=== PATIENT | female | born 1985 | race Caucasian/White ===

== ENCOUNTER 2021-02-23 09:03 | Observation (INO) | payer OTHER ==
[2021-02-23 09:29] VITALS: BP 127/85
[2021-02-23] MEDS ORDERED: [UNRECOGNIZED DRUG - OTHER] PO (10:11)
[2021-02-23 10:47] LABS: BASOPHILS % (AUTO) 0.5 % (0.0-2.0); EOSINOPHILS % (AUTO) 0.5 % (1.0-6.0); HEMATOCRIT 35.3 % (36-46); LYMPHOCYTES # (AUTO) 1.1 K/uL (1.0-4.8); LYMPHOCYTES % (AUTO) 16.9 % (22.0-44.0); MEAN CORPUSCULAR HEMOGLOBIN 31.4 pg (26.0-34.0); MEAN CORPUSCULAR HGB CONC 33.8 G/dL (31.0-37.0); MEAN CORPUSCULAR VOLUME 93 fL (80-100); MONOCYTES # (AUTO) 0.5 K/uL (0.1-1.0); MONOCYTES % (AUTO) 7.5 % (2.0-9.0); NEUTROPHILS # (AUTO) 4.8 K/uL (1.8-7.7); NEUTROPHILS % (AUTO) 74.6 % (40.0-70.0); PLATELET COUNT (AUTO) 171 K/uL (150-450); RED BLOOD CELL COUNT(AUTO) 3.81 MIL/uL (4.00-5.20); RED CELL DISTRIBUTION WIDTH 14.1 % (11.5-14.5)
[2021-02-23 11:03] LABS: ANION GAP 11 mmol/L (8-16); CALCIUM, TOTAL 8.9 mg/dL (8.8-10.5); CARBON DIOXIDE 24 mmol/L (22-29); CHLORIDE 106 mmol/L (98-107); CREATININE 0.76 mg/dL (0.60-1.30); GLOMERULAR FILTR. RATE CALC > 60 mL/min (>60); GLUCOSE,RANDOM 100 mg/dL (70-110); POTASSIUM 4.6 mmol/L (3.5-5.1); SODIUM SERUM 141 mmol/L (136-145); UREA NITROGEN, BLOOD 18 mg/dL (7-18)
[2021-02-23 11:12] LABS: ALANINE AMINOTRANSFERASE 37 U/L (12-78); ALBUMIN 2.7 g/dL (3.4-5.0); ALKALINE PHOSPHATASE 153 U/L (46-116); ASPARTATE AMINOTRANSFERASE 20 U/L (15-37); BILIRUBIN,TOTAL 0.2 mg/dL (0.1-1.0); TOTAL PROTEIN, SERUM 6.2 g/dL (6.4-8.2); URIC ACID 6.2 mg/dL (2.6-7.2)
== END 2021-02-23 11:10 | disposition home or self-care (01) ==
LOC: 4S 09:03
PROVIDERS: ADMIT Obstetrics & Gynecology; ATTEND Obstetrics & Gynecology
DX: O09.513 Supervision of elderly primigravida, third trimester (principal); Z3A.37 37 weeks gestation of pregnancy
CPT/HCPCS: 59025; 80053; 81001; 84550; 85025; 99219

== ENCOUNTER 2021-02-23 13:54 | Observation (INO) | payer OTHER ==
[~2021-02-23] VITALS: Ht 157.5 cm; Wt 66.7 kg
[~2021-02-23 13:54] MED LIST: [UNRECOGNIZED DRUG - OTHER] PO
[2021-02-28 07:35] VITALS: BP 127/85
[2021-02-28] MEDS ORDERED: PREN-217 PO (07:37)
[2021-02-28] MEDS ORDERED: DEXTROSE 5%-LACTATED RINGERS 1,000 ML IV ONE (13:30)
== END 2021-02-28 09:40 | disposition home or self-care (01) ==
LOC: 4S 02-28 06:41
PROVIDERS: ADMIT Obstetrics & Gynecology; ATTEND Obstetrics & Gynecology
DX: O62.9 Abnormality of forces of labor, unspecified (principal); O42.92 Full-term premature rupture of membranes, unspecified as to length of time between rupture and onset of labor; Z3A.38 38 weeks gestation of pregnancy
CPT/HCPCS: 59025; 76805; 81001; 89060; 99219

== ENCOUNTER 2021-03-01 02:20 | Observation (INO) | payer OTHER ==
[~2021-03-01] VITALS: Ht 154.9 cm; Wt 67.1 kg
[~2021-03-01 02:20] MED LIST changes: +PREN-217 PO
[2021-03-01 02:33] VITALS: BP 120/79
[2021-03-01] MEDS ORDERED: RINGERS SOLUTION,LACTATED 1,000 ML IV ONE (06:30)
[2021-03-01] MEDS ORDERED: HydrOXYzine HCL 50 MG TABLET PO ONE (06:30)
[2021-03-01] MEDS ORDERED: FentaNYL CITRATE PF 100 MCG/2 ML VIAL IVP PRN (08:45)
== END 2021-03-01 10:05 | disposition home or self-care (01) ==
LOC: 4S 02:20
PROVIDERS: ADMIT Student in an Organized Health Care Education/Training Program; ATTEND Student in an Organized Health Care Education/Training Program
DX: O62.9 Abnormality of forces of labor, unspecified (principal); Z3A.38 38 weeks gestation of pregnancy
CPT/HCPCS: 59025; 81001; 96361; 96374; 99219; J3010; 96360; 96366

== ENCOUNTER 2021-03-02 18:20 | Inpatient (IN) | payer OTHER ==
[2021-03-02] MEDS ORDERED: LIDOCAINE/PF 1% 30 ML VIAL SQ PRN (19:00)
[2021-03-02] MEDS ORDERED: CITRIC ACID/SODIUM CITRATE 30 ML SOLUTION UDCUP PO PRN (19:00)
[2021-03-02] MEDS ORDERED: RINGERS SOLUTION,LACTATED 1,000 ML IV PRN (19:00)
[2021-03-02] MEDS ORDERED: OXYTOCIN 30 UNITS/LACT RINGERS 500 ML IV ONE (19:00)
[2021-03-02] MEDS ORDERED: METOCLOPRAMIDE HCL 5 MG/ML 2 ML VIAL IVP PRN (19:00)
[2021-03-02] MEDS: RINGERS SOLUTION,LACTATED 1,000 ML IV SCH (19:37)
[2021-03-02 19:39] LABS: BASOPHILS % (AUTO) 0.3 % (0.0-2.0); EOSINOPHILS % (AUTO) 0 % (1.0-6.0); HEMATOCRIT 37.6 % (36-46); HEMOGLOBIN 12.7 g/dL (12.0-16.0); LYMPHOCYTES # (AUTO) 0.9 K/uL (1.0-4.8); MEAN CORPUSCULAR HEMOGLOBIN 31.1 pg (26.0-34.0); MEAN CORPUSCULAR HGB CONC 33.8 G/dL (31.0-37.0); MEAN CORPUSCULAR VOLUME 92 fL (80-100); MONOCYTES # (AUTO) 0.5 K/uL (0.1-1.0); MONOCYTES % (AUTO) 3.7 % (2.0-9.0); NEUTROPHILS # (AUTO) 11.2 K/uL (1.8-7.7); PLATELET COUNT (AUTO)-OB 186 K/uL (150-450); RED BLOOD CELL COUNT(AUTO) 4.08 MIL/uL (4.00-5.20); RED CELL DISTRIBUTION WIDTH 14.5 % (11.5-14.5)
[2021-03-02] MEDS ORDERED: OXYGEN THERAPY IH SCH (20:00)
[2021-03-02 20:03] VITALS: BP 138/85
[2021-03-02] MEDS ORDERED: ROPIVACAINE HCL/PF 0.2% 100 ML ED ONE (20:37)
[2021-03-02] MEDS ORDERED: ROPIVACAINE HCL/PF 0.2% 100 ML ED PRN (21:00)
[2021-03-02] MEDS ORDERED: DiphenhydrAMINE HCL 50 MG/ML VIAL IVP PRN (21:00)
[2021-03-02] MEDS ORDERED: NALBUPHINE HCL 10 MG/ML VIAL IVP PRN (21:00)
[2021-03-02] MEDS ORDERED: ONDANSETRON HCL 4 MG/2 ML VIAL IVP PRN (21:00)
[2021-03-02 22:14] LABS: COVID AG,FIA SOURCE NASOPHARYNGEAL
[2021-03-03] MEDS ORDERED: MINERAL OIL 30 ML UDCUP ONE (02:44)
[2021-03-03] MEDS ORDERED: MINERAL OIL 30 ML UDCUP VG ONE (02:45)
[2021-03-03] MEDS: RINGERS SOLUTION,LACTATED 1,000 ML IV SCH (03:34)
[2021-03-03] MEDS ORDERED: MEASLES/MUMPS/RUBELLA VACCINE, LIVE 0.5 ML VIAL SQ. ONE (05:00)
[2021-03-03] MEDS ORDERED: BENZOCAINE 20%/MENTHOL 56 GM SPRAY CANISTER TP PRN (05:00)
[2021-03-03] MEDS ORDERED: GLYCERIN/WITCH HAZEL LEAF 40 PADS JAR TP PRN (05:00)
[2021-03-03] MEDS: LANOLIN 7 GM OINTMENT TP PRN (05:41)
[2021-03-03] MEDS: IBUPROFEN 600 MG TABLET PO SCH ×3 (06:37→17:52)
[2021-03-03] MEDS: SENNA/DOCUSATE SODIUM 8.6-50 MG TABLET PO SCH ×2 (08:06→21:46)
[2021-03-04] MEDS: IBUPROFEN 600 MG TABLET PO SCH ×3 (00:04→11:03)
[2021-03-04] MEDS: LANOLIN 7 GM OINTMENT TP PRN (05:59)
[2021-03-04 07:37] LABS: BASOPHILS % (AUTO) 0.4 % (0.0-2.0); HEMATOCRIT 31.4 % (36-46); HEMOGLOBIN 10.6 g/dL (12.0-16.0); LYMPHOCYTES # (AUTO) 1.5 K/uL (1.0-4.8); MEAN CORPUSCULAR HEMOGLOBIN 31.3 pg (26.0-34.0); MEAN CORPUSCULAR HGB CONC 33.8 G/dL (31.0-37.0); MEAN CORPUSCULAR VOLUME 93 fL (80-100); MONOCYTES # (AUTO) 0.6 K/uL (0.1-1.0); MONOCYTES % (AUTO) 6.2 % (2.0-9.0); NEUTROPHILS # (AUTO) 7.8 K/uL (1.8-7.7); NEUTROPHILS % (AUTO) 77.4 % (40.0-70.0); PLATELET COUNT (AUTO)-OB 126 K/uL (150-450); RED BLOOD CELL COUNT(AUTO) 3.39 MIL/uL (4.00-5.20); RED CELL DISTRIBUTION WIDTH 14.5 % (11.5-14.5)
[2021-03-04] MEDS ORDERED: IBUP-2071 PO (08:19)
[2021-03-04] MEDS ORDERED: FERR-89 PO (08:21)
[2021-03-04] MEDS ORDERED: DOCU-275 PO (08:22)
[2021-03-04] MEDS: SENNA/DOCUSATE SODIUM 8.6-50 MG TABLET PO SCH (09:29)
== END 2021-03-04 11:30 | disposition home or self-care (01) | DRG 807 ==
LOC: 4S 18:20 → OBSVTOIN 18:20
PROVIDERS: ADMIT Student in an Organized Health Care Education/Training Program; ATTEND Student in an Organized Health Care Education/Training Program
PROC: 3E0R3BZ Introduction of Anesthetic Agent into Spinal Canal, Percutaneous Approach (ICD-10-PCS; 2021-03-02)
PROC: 00HU33Z Insertion of Infusion Device into Spinal Canal, Percutaneous Approach (ICD-10-PCS; 2021-03-02)
PROC: 10E0XZZ Delivery of Products of Conception, External Approach (ICD-10-PCS; principal; 2021-03-03)
PROC: 0KQM0ZZ Repair Perineum Muscle, Open Approach (ICD-10-PCS; 2021-03-03)
PROC: 3E0234Z Introduction of Serum, Toxoid and Vaccine into Muscle, Percutaneous Approach (ICD-10-PCS; 2021-03-03)
DX: O70.1 Second degree perineal laceration during delivery (principal); Z37.0 Single live birth; Z20.822 Contact with and (suspected) exposure to COVID-19; Z3A.38 38 weeks gestation of pregnancy; Z88.2 Allergy status to sulfonamides; Z23 Encounter for immunization
CPT/HCPCS: 85025; 86850; 86900; 86901; J2590; J2795; J7120